=== PATIENT | male | born 2000 | race African-American/Black ===

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

== ENCOUNTER 2021-02-12 10:20 | Emergency (ER) | payer OTHER ==
[~2021-02-12] VITALS: Ht 172.7 cm; Wt 113.4 kg
[2021-02-12 10:35] VITALS: BP 152/85; TEMP 97.6
== END 2021-02-12 11:30 | disposition home or self-care (01) ==
LOC: ED 10:20
DX: S61.011A Laceration without foreign body of right thumb without damage to nail, initial encounter (principal); W23.0XXA Caught, crushed, jammed, or pinched between moving objects, initial encounter; Y92.098 Other place in other non-institutional residence as the place of occurrence of the external cause
CPT/HCPCS: 99282